=== PATIENT | female | born 1945 | race Caucasian/White ===

== ENCOUNTER 2019-04-14 15:20 | Emergency (ER) | payer OTHER ==
[2019-04-14 15:28] VITALS: BP 131/68; PULSE 57; TEMP 97.9; BMI 25.4
--- NOTE | 2019-04-14 16:09 | PDOC ---
History of Present Illness - General Chief Complaint: Injury Stated Complaint: INJURY Time Seen by Provider: 04/14/19 15:38 History Source: Patient, Family - History of Present Illness Occurred: reports: this afternoon Upper Extremity Pain Location: right: shoulder Method of Injury: reports: fell Past History - Past Medical History Allergies/Adverse Reactions: Allergies Allergy/AdvReac Type Severity Reaction Status Date / Time No Known Allergies Allergy Verified 04/14/19 15:29 Home Medications: Ambulatory Orders Tramadol HCl 50 mg PO Q6H #20 tablet MDD 200 mg 04/14/19 COPD: No HTN: Yes Hypercholesterolemia: Yes - Psycho Social/Smoking Cessation Hx Smoking History: Never smoked Review of Systems - Review of Systems ABD/GI: No: Nausea, Vomiting Musculoskeletal: Yes: Joint Pain. No: Back Pain, Joint Swelling, Neck Pain Neurological: No: Headache, Numbness, Tingling, Weakness, Dizziness *Physical Exam - Vital Signs Last Vital Signs Temp Pulse Resp BP Pulse Ox 97.9 F 57 L 18 131/68 99 04/14/19 15:23 04/14/19 15:23 04/14/19 15:23 04/14/19 15:23 04/14/19 15:23 - Physical Exam General Appearance: Yes: Appropriately Dressed, Moderate Distress HEENT: positive: Normal Voice Neck: positive: Supple Respiratory/Chest: negative: Respiratory Distress Integumentary: positive: Dry, Warm Neurologic: positive: Fully Oriented, Alert, Normal Mood/Affect, Motor Strength 5/5 Procedures - Splinting Splint Location: Right: Forearm (R arm-humeral shaft fx) Hand-Made Type: orthoglass Splint Type: Yes: Baylee Ontiveros (coaptation to RUE w/ sling) Post-Proc Neuro Vasc Exam: normal Sylvester Bandage: 4" (3) Sling: Yes Complications: No ED Treatment Course - RADIOLOGY Radiology Studies Ordered: Category Date Time Status SHOULDER-RIGHT [RAD] Stat Radiology 04/14/19 16:03 Ordered Medical Decision Making - Medical Decision Making 04/14/19 16:05 73-year-old female, history of hypertension and hyperlipidemia, not on any blood thinners, brought in by son for R shoulder pain and deformity after fall over an hour ago. Patient states she tripped going down some steps. Denies hitting head and no LOC, headache, dizziness, visual changes, nausea or vomiting. No neck hip or back pain and ambulatory since fall. Denies CP or dizziness prior to fall see exam Concern for R shoulder fx and/or dislocation -XR -Sling given -pain control 04/14/19 17:00 XR w/ mid shaft humeral fx, GH joint appears intact. Case discussed with LIAN Moncada of ortho who recommends coaptation splint and for patient to follow-up in clinic on Tuesday. Discharge - Discharge Information Problems reviewed: Yes Clinical Impression/Diagnosis: Humeral fracture Qualifiers: Encounter type: initial encounter Humerus Location: shaft Fracture type: closed Fracture morphology: transverse Fracture alignment: nondisplaced Laterality: right Qualified Code(s): S42.324A - Nondisplaced transverse fracture of shaft of humerus, right arm, initial encounter for closed fracture Condition: Improved Disposition: HOME - Additional Discharge Information Prescriptions: Tramadol HCl 50 mg PO Q6H #20 tablet MDD 200 mg - Follow up/Referral Referrals: Dedra Kelly MD [Primary Care Provider] - Mio Cespedes MD [Staff Physician] - - Patient Discharge Instructions Patient Printed Discharge Instructions: Humeral Shaft Fracture Additional Instructions: It appears that you have a right arm fracture. A splint was placed and your sent home on pain medication. Please call Ortho clinic at [phone] on Tuesday a.m. to make appointment to see Dr. Cespedes Please let clinic staff know that you were seen in the ED today and diagnosed with fracture and that ED staff spoke to LIAN Moncada who referred you to Dr. Cespedes - Post Discharge Activity
[2019-04-14] MEDS ORDERED: morphine CARPU-JECT 4 MG/1 ML DISP.SYRIN IM ONE (16:19)
[2019-04-14] MEDS ORDERED: morphine CARPU-JECT 4 MG/1 ML DISP.SYRIN IVPUSH ONE (16:19)
[2019-04-14] MEDS ORDERED: morphine SULFATE 4 MG/ML VIAL ONE (16:25)
== END 2019-04-14 17:31 | disposition home or self-care (01) ==
LOC: JERFT 15:20
PROC: 3E023NZ Introduction of Analgesics, Hypnotics, Sedatives into Muscle, Percutaneous Approach (ICD-10-PCS; principal; 2019-04-14)
PROC: 2W3CX1Z Immobilization of Right Lower Arm using Splint (ICD-10-PCS; 2019-04-14)
DX: S42.324A Nondisplaced transverse fracture of shaft of humerus, right arm, initial encounter for closed fracture (principal); W10.8XXA Fall (on) (from) other stairs and steps, initial encounter; Y93.89 Activity, other specified; Y92.89 Other specified places as the place of occurrence of the external cause; Y99.8 Other external cause status; E78.5 Hyperlipidemia, unspecified; I10 Essential (primary) hypertension
CPT/HCPCS: 73030-TC-RT-FY; 99282-25

== ENCOUNTER 2023-11-17 11:31 | Emergency (ER) | payer OTHER ==
[2023-11-17 11:49] VITALS: BP 138/66; PULSE 73; RESP 18; TEMP 98.4; BMI 24.5
[2023-11-17] MEDS: ACETAMINOPHEN 500 MG TABLET (FP) PO ONE (12:00)
[2023-11-17] MEDS ORDERED: ACETAMINOPHEN 500 MG TABLET (FP) ONE (12:01)
== END 2023-11-17 13:58 | disposition home or self-care (01) ==
LOC: JERFT 11:31
DX: M25.512 Pain in left shoulder (principal); M79.602 Pain in left arm; W01.0XXA Fall on same level from slipping, tripping and stumbling without subsequent striking against object, initial encounter
CPT/HCPCS: 73030-TC-LT-FY; 73060-TC-LT-FY; 73090-TC-LT-FY; 73110-TC-LT-FY; 73130-TC-LT-FY; 99284-25

== ENCOUNTER 2023-12-13 08:11 | Emergency (ER) | payer OTHER ==
[2023-12-13 08:19] VITALS: BP 166/78; PULSE 72; RESP 16; TEMP 98.6; BMI 25.4
[2023-12-13] MEDS ORDERED: ACETAMINOPHEN 325 MG TABLET (FP) ONE (09:27)
[2023-12-13] MEDS: ACETAMINOPHEN 500 MG TABLET (FP) PO ONE (09:33)
[2023-12-13] MEDS: LIDOCAINE 5% TOPICAL PATCH TP ONE (10:46)
[2023-12-13] MEDS ORDERED: KETOROLAC TROMETHAMINE 30 MG/1 ML VIAL ONE (10:56)
[2023-12-13] MEDS: KETOROLAC TROMETHAMINE 30 MG/1 ML VIAL IM ONE (11:02)
[2023-12-13] MEDS ORDERED: LIDOCAINE PATCH REMOVAL MC SCH (22:00)
== END 2023-12-13 15:38 | disposition home or self-care (01) ==
LOC: JER 08:11
PROC: 3E0133Z Introduction of Anti-inflammatory into Subcutaneous Tissue, Percutaneous Approach (ICD-10-PCS; principal; 2023-12-13)
DX: M25.512 Pain in left shoulder (principal); M79.602 Pain in left arm; W22.8XXA Striking against or struck by other objects, initial encounter
CPT/HCPCS: 73030-TC-LT-FY; 73060-TC-LT-FY; 73070-TC-LT-FY; 73200-TC-RT; 99284-25

== ENCOUNTER 2024-11-05 14:49 | Inpatient (IN) | payer OTHER ==
[2024-11-05 15:55] LABS: ABSOLUTE IMMATURE GRANULOCYTES 0.04 x10^3/uL (0.0-0.031); BASOPHILS # 0.09 x10^3/uL (0.01-0.08); EOSINOPHIL % 2.1 % (0.7-5.8); EOSINOPHILS # 0.17 x10^3/uL (0.04-0.36); HEMATOCRIT 35.1 % (34.1-44.9); HEMOGLOBIN 11.4 g/dL (11.2-15.7); MCHC 32.5 g/dl (32.2-35.5); MEAN CELL VOLUME 88.2 fl (79.4-94.8); MEAN PLT VOLUME 9.9 fl (9.4-12.3); MONOCYTE # 0.58 x10^3/uL (0.24-0.86); MONOCYTE % 7.2 % (4.7-12.5); PLATELET COUNT 386 x10^3/uL (182-369); RDW 14.7 % (12.4-16.6)
[2024-11-05 16:13] LABS: EPI CELLS >36 /uL (0-25.1); HYALINE CASTS 0 /uL (0-3.1); URINE APPEARANCE CLEAR; URINE BACTERIA 542 /uL (0-1359); URINE BILIRUBIN NEGATIVE (NEGATIVE); URINE COLOR YELLOW; URINE GLUCOSE (UA) NEGATIVE (NEGATIVE); URINE KETONE NEGATIVE (NEGATIVE); URINE LEUK ESTERASE TRACE (NEGATIVE); URINE NITRITE NEGATIVE (NEGATIVE); URINE PROTEIN NEGATIVE (NEGATIVE); URINE RBC 11 /uL (0-23.9); URINE UROBILINOGEN 0.2 mg/dL (0.2-1.0); URINE WBC 30 /uL (0-25.8)
[2024-11-05 16:17] LABS: POTASSIUM 4.5 mmol/L (3.5-5.1)
[2024-11-05 16:19] LABS: ALBUMIN 3.4 g/dl (3.4-5.0); CALCIUM 9.6 mg/dL (8.5-10.1)
[2024-11-05 16:20] LABS: BLOOD UREA NITROGEN 9.5 mg/dL (7-18)
[2024-11-05 16:23] LABS: CREATININE 0.7 mg/dL (0.55-1.3)
[2024-11-05 16:24] LABS: BILIRUBIN,TOTAL 0.4 mg/dL (0.2-1)
[2024-11-05] MEDS ORDERED: HALOPERIDOL LACTATE 5 MG/ML IM PRN (18:02)
[2024-11-05] MEDS ORDERED: LORazepam 2 MG/ML SDV VIAL IM PRN (18:02)
[2024-11-05] MEDS: HALOPERIDOL LACTATE 5 MG/ML IM ONE (18:20)
[2024-11-05 20:40] VITALS: RESP 18; BMI 21.7
[2024-11-05] MEDS: HEPARIN NA (PORCINE) 5,000 UNITS/ML 1ML VIAL SQ SCH (21:19)
[2024-11-06 08:45] LABS: ABSOLUTE IMMATURE GRANULOCYTES 0.03 x10^3/uL (0.0-0.031); BASOPHILS # 0.09 x10^3/uL (0.01-0.08); EOSINOPHIL % 2.7 % (0.7-5.8); EOSINOPHILS # 0.22 x10^3/uL (0.04-0.36); MCHC 32.4 g/dl (32.2-35.5); MEAN CELL VOLUME 88.3 fl (79.4-94.8); MONOCYTE # 0.53 x10^3/uL (0.24-0.86); MONOCYTE % 6.5 % (4.7-12.5); PLATELET COUNT 411 x10^3/uL (182-369); RDW 15.1 % (12.4-16.6)
[2024-11-06 09:18] LABS: POTASSIUM 4.1 mmol/L (3.5-5.1)
[2024-11-06 09:24] LABS: CALCIUM 9.7 mg/dL (8.5-10.1)
[2024-11-06 09:25] LABS: BLOOD UREA NITROGEN 9.5 mg/dL (7-18)
[2024-11-06 09:28] LABS: CREATININE 0.6 mg/dL (0.55-1.3)
[2024-11-06] MEDS: amLODIPine BESYLATE 5 MG TABLET (FP) PO SCH (09:45)
[2024-11-06] MEDS: MIRTAZAPINE 15 MG TABLET (FP) PO SCH (21:24)
[2024-11-07] MEDS: DONEPEZIL HCL 5 MG TABLET (FP) PO SCH (06:15)
[2024-11-07 09:06] VITALS: BP 135/64; PULSE 73; TEMP 98.4
[2024-11-07 10:47] LABS: ABSOLUTE IMMATURE GRANULOCYTES 0.03 x10^3/uL (0.0-0.031); BASOPHILS # 0.07 x10^3/uL (0.01-0.08); EOSINOPHIL % 2.8 % (0.7-5.8); HEMATOCRIT 34.6 % (34.1-44.9); MCHC 31.8 g/dl (32.2-35.5); MEAN CELL VOLUME 87.4 fl (79.4-94.8); MEAN PLT VOLUME 11.2 fl (9.4-12.3); MONOCYTE # 0.48 x10^3/uL (0.24-0.86); MONOCYTE % 6.7 % (4.7-12.5); PLATELET COUNT 426 x10^3/uL (182-369); RDW 14.6 % (12.4-16.6)
== END 2024-11-07 12:31 | disposition home or self-care (01) | DRG 57 ==
LOC: JER 14:49 → JERBED 18:15 → J5S 19:53
PROVIDERS: ADMIT Internal Medicine
DX: G30.9 Alzheimer's disease, unspecified (principal); F02.818 Dementia in other diseases classified elsewhere, unspecified severity, with other behavioral disturbance; I10 Essential (primary) hypertension; E78.5 Hyperlipidemia, unspecified; M81.0 Age-related osteoporosis without current pathological fracture
CPT/HCPCS: 0241U-QW; 36415; 70450-TC; 70551-TC; 71045-TC-FY; 80048; 80053; 81003; 82306; 82607; 82962; 84439; 84443; 84484; 85025; 87086; 93005; 93010; 97116-GP; 97161-GP; 99285-25